=== PATIENT | female | born 1950 | race Caucasian/White ===

== ENCOUNTER → 2016-06-13 | Outpatient (CLI) | payer MEDICARE, OTHER ==
[~2016-06-13] MED LIST: Iopamidol 612 MG/ML 100 ML Bottle IVPUSH ONE; Sodium Chloride 0.9% 100 ML IV ONE
== END ==
LOC: VM.CT 08:47
PROVIDERS: ATTEND Family Medicine
DX: R68.81 Early satiety (principal); R14.0 Abdominal distension (gaseous); R10.12 Left upper quadrant pain
CPT/HCPCS: 74177; J7050; Q9967